=== PATIENT | female | born 1980 | race Hispanic/Latino ===

== ENCOUNTER 2017-07-18 12:05 | Emergency (ER) | payer OTHER ==
[2017-07-18 12:25] VITALS: BP 122/83; PULSE 98; RESP 20; TEMP 98.5; O2SAT 98
--- NOTE | 2017-07-18 12:38 | C.PDOC ---
History Of Present Illness 36 y/o female presents to ED for evaluation of right ear ache, cough, and congestion for the last 4 days. Denies fever, chills, sore throat, shortness of breath, or any other associated symptoms at this time. (+) smoker Time Seen by Provider: 07/18/17 12:12 Chief Complaint (Nursing): ENT Problem History Per: Patient History/Exam Limitations: no limitations Onset/Duration Of Symptoms: Days (4) Current Symptoms Are (Timing): Still Present Location Of Pain: Ear(s) (right) Sick Contacts (Context): None Associated Symptoms: Cough, Nasal Congestion. denies: Fever, Chills, Sore Throat, Sputum, Neck Pain, Sinus Drainage, Myalgias Ear Symptoms: Right: Ear Pain Recent travel outside of the [place]: No Additional History Per: Patient Past Medical History Reviewed: Historical Data, Nursing Documentation, Vital Signs Vital Signs: Last Vital Signs Temp 98.5 F 07/18/17 12:22 Pulse 98 H 07/18/17 12:22 Resp 20 07/18/17 12:22 BP 122/83 07/18/17 12:22 Pulse Ox 98 07/18/17 14:32 - Medical History PMH: Asthma, Back Problems Family History: States: Unknown Family Hx - Social History Hx Tobacco Use: Yes Hx Alcohol Use: No Hx Substance Use: Yes (past use) - Immunization History Hx Tetanus Toxoid Vaccination: No Hx Influenza Vaccination: No Hx Pneumococcal Vaccination: No Review Of Systems Except As Marked, All Systems Reviewed And Found Negative. Constitutional: Negative for: Fever, Chills ENT: Positive for: Ear Pain (right), Nose Congestion. Negative for: Ear Discharge, Nose Discharge, Mouth Pain, Throat Pain, Throat Swelling Respiratory: Positive for: Cough. Negative for: Shortness of Breath Gastrointestinal: Negative for: Nausea, Vomiting, Diarrhea Skin: Negative for: Rash Physical Exam - Physical Exam Appears: Non-toxic, No Acute Distress Skin: Normal Color, Warm, Dry, No Rash Head: Atraumatic, Normacephalic Eye(s): bilateral: Normal Inspection, EOMI Ear(s): Bilateral: TM Erythema (bilateral ear erythema, R>L) Nose: Normal Oral Mucosa: Moist Throat: Normal, No Erythema, No Exudate, No Drooling Neck: Normal ROM, Supple Lymphatic: Normal Exam Chest: Symmetrical Cardiovascular: Rhythm Regular, No Murmur Respiratory: Normal Breath Sounds, No Accessory Muscle Use, No Rales, No Rhonchi , No Wheezing Extremity: Normal ROM Neurological/Psych: Oriented x3, Normal Speech ED Course And Treatment O2 Sat by Pulse Oximetry: 98 (on RA) Pulse Ox Interpretation: Normal Progress Note: Pt was given Motrin. On re-eval, pt reports improvement of pain. No acute distress. Patient is being discharged home, and is instructed to follow up with his primary medical doctor or clinic in 2-5 days for further evaluation. Disposition - Disposition Disposition: HOME/ ROUTINE Disposition Time: 12:36 Condition: STABLE Additional Instructions: Follow up with your primary medical doctor or clinic in 2-5 days for further evaluation. Take medications as prescribed. Return to the emergency department at any time if symptoms persist or worsen. 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 - Scribe Statement The provider has reviewed the documentation as recorded by the Scribe Caitlin Thompson All medical record entries made by the Nilay were at my direction and personally dictated by me. I have reviewed the chart and agree that the record accurately reflects my personal performance of the history, physical exam, medical decision making, and the department course for this patient. I have also personally directed, reviewed, and agree with the discharge instructions and disposition.
== END 2017-07-18 13:24 | disposition home or self-care (01) ==
LOC: C.ER 12:05
DX: H66.93 Otitis media, unspecified, bilateral (principal); F17.210 Nicotine dependence, cigarettes, uncomplicated

== ENCOUNTER 2017-08-20 14:41 | Emergency (ER) | payer MEDICAID, OTHER ==
[2017-08-20 14:46] VITALS: BP 103/69; PULSE 91; TEMP 97.4; O2SAT 97
[2017-08-20] MEDS ORDERED: Oxycodone/Acetaminophen 5/325 mg Tab PO STA (15:36)
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
[2017-08-20 16:35] VITALS: RESP 20
== END 2017-08-20 16:35 | disposition home or self-care (01) ==
LOC: C.ER 14:41
DX: Z48.02 Encounter for removal of sutures (principal)

== ENCOUNTER 2017-10-04 13:04 | Emergency (ER) | payer MEDICAID, OTHER ==
[2017-10-04 13:23] VITALS: BP 106/70; PULSE 73; RESP 18; TEMP 97.9; O2SAT 100
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
--- NOTE | 2017-10-04 14:54 | CT ---
CT maxillofacial bones without IV contrast Indication: Trauma to nose Comparison: None available Technique: Axial computed tomography images were obtained of the maxillofacial bones without the use of intravenous contrast. Coronal and sagittal reformatted images were generated and reviewed. This CT exam was performed using 1 or more of the falling dose reduction techniques: Automated exposure control, adjustment of the MAA and/or kV according to patient size, and/or use of iterative reconstruction technique. Radiation dose: Total exam DLP = 735.66 mGy-cm. Findings: Streak artifact from dental hardware. Comminuted displaced right nasal bone fractures. Nondisplaced left nasal bone fractures. Associated soft tissue swelling. The remainder the visualized osseous structures appear intact. The orbits appear unremarkable. The temporomandibular joints are located. The mastoid air cells appear clear. Extensive opacification of the left sphenoid sinus. Marked mucosal thickening of the right greater than left maxillary sinuses including mucosal polyp/ retention cysts. Visualized portions of the brain appear grossly unremarkable. Impression: Comminuted displaced right nasal bone fractures. Nondisplaced left nasal bone fractures. Associated soft tissue swelling. Extensive opacification of the left sphenoid sinus. Marked mucosal thickening of the right greater than left maxillary sinuses including mucosal polyp/ retention cysts.
== END 2017-10-04 14:54 | disposition home or self-care (01) ==
LOC: C.ER 13:04
DX: S02.2XXA Fracture of nasal bones, initial encounter for closed fracture (principal); Y04.0XXA Assault by unarmed brawl or fight, initial encounter; Y92.039 Unspecified place in apartment as the place of occurrence of the external cause

== ENCOUNTER 2018-02-01 17:31 | Inpatient (IN) | payer OTHER ==
[2018-02-01 17:38] VITALS: BMI 20.2
--- NOTE | 2018-02-01 18:23 | C.PDOC ---
History Of Present Illness <Nicole Gil - Last Filed: 02/01/18 18:45> <Luke Molina - Last Filed: 02/01/18 20:28> 37-YEAR-OLD FEMALE, PRESENTS TO THE EMERGENCY DEPARTMENT WITH COMPLAINTS OF FEVER, RASH ONGOING 2-3 DAYS, RASH INITIAL ONSET ON CHEST, LEFT UPPER ARM, AND SPREAD "EVERYWHERE" GENERALIZED BODY OVER 2 DAYS. NEW ONSET FEVER THIS AM. +GEN ITCH. PS HAD CHILDHOOD CHICKEN POX AND IMMUNIZATIONS. NO RECENT TRAVEL, NO KNOWN SICK CONTACT EXPOSURE, NO HEADACHE. DENIES HX OF IVDA, NO PRIOR TESTING FOR HIV. SHE IS ALSO COMPLAINING OF LESION IN MOUTH ONGONG X1 WEEK/. STATES BITES HER CHEEK WHEN SHE IS ASLEEP. EXAM NON TOXIC. NAD HEENT NO PHOTOPHOBIA, EYES CLR. NO DC NO RUNNY NOSE ORAL: CHRONIC EXCORIATION ON BUCKLE SURFACE RIGHT MOUTH. POOR DENTITION, NO VISUALIZED KOPLIK'S SPOTS NECK IS SUPPLE NO MENINGISMUS NODE: B/L CERVICAL, R SUBMANDIBULAR NONTEN SKIN: DIFFUSE, GENERALIZED MORBILLIFORM, NONCONFLUENT, BLANCHING, NO VESICLES, OCC EXCORIATIONS FROM PT SCRATCHING, SPARING PALMS AND SOLES. NEURO INTACT NO FOCAL DEF. NO XIE. (Nicole Gil) History Per: Patient History/Exam Limitations: no limitations Onset/Duration Of Symptoms: Days <Nicole Gil - Last Filed: 02/01/18 18:45> <Luke Molina - Last Filed: 02/01/18 20:28> Time Seen by Provider: 02/01/18 18:19 Chief Complaint (Nursing): ENT Problem Past Medical History Reviewed: Historical Data, Nursing Documentation, Vital Signs - Medical History PMH: Anemia, Anxiety, Asthma, Back Problems, Depression Family History: States: No Known Family Hx - Social History Hx Tobacco Use: Yes Hx Alcohol Use: No Hx Substance Use: Yes (past use) - Immunization History Hx Tetanus Toxoid Vaccination: Yes Hx Influenza Vaccination: No Hx Pneumococcal Vaccination: No <Nicole Gil - Last Filed: 02/01/18 18:45> Vital Signs: Last Vital Signs Temp 97.9 F 02/01/18 19:47 Pulse 108 H 02/01/18 20:24 Resp 16 02/01/18 20:24 BP 112/74 02/01/18 20:24 Pulse Ox 100 02/01/18 20:24 Review Of Systems Constitutional: Positive for: Fever. Negative for: Weakness Cardiovascular: Negative for: Chest Pain, Palpitations Respiratory: Negative for: Cough, Shortness of Breath Gastrointestinal: Negative for: Nausea, Vomiting Skin: Positive for: Rash Neurological: Negative for: Headache, Dizziness <Nicole Gil - Last Filed: 02/01/18 18:45> Physical Exam - Physical Exam Appears: Non-toxic, No Acute Distress Skin: Warm, Dry, Rash (DIFFUSE, GENERALIZED MORBILLIFORM, NONCONFLUENT, BLANCHING, NO VESICLES, OCC EXCORIATIONS FROM PT SCRATCHING, SPARING PALMS AND SOLES. ) Head: Atraumatic, Normacephalic Eye(s): bilateral: Normal Inspection (NO PHOTOPHOBIA), PERRL, EOMI Oral Mucosa: Other Teeth: No Normal Dentition (poor) Throat: Other (CHRONIC EXCORIATION ON BUCKLE SURFACE RIGHT MOUTH. POOR DENTITION , NO VISUALIZED KOPLIK'S SPOTS) Neck: Normal ROM, Supple, Other (NO MENINGISMUS. B/L CERVICAL, R SUBMANDIBULAR LYMPHADENOPATHY. NONTEN) Neurological/Psych: Oriented x3, Normal Speech, Other ( NO FOCAL DEF) <Nicole Gil - Last Filed: 02/01/18 18:45> ED Course And Treatment O2 Sat by Pulse Oximetry: 99 (RA) Pulse Ox Interpretation: Normal <Nicole Gil - Last Filed: 02/01/18 18:45> - Laboratory Results Result Diagrams: 02/01/18 19:02 02/01/18 19:02 <Luke Molina - Last Filed: 02/01/18 20:28> Progress - Data Reviewed Data Reviewed: Lab, Old records <Nicole Gil - Last Filed: 02/01/18 18:45> <Luke Molina - Last Filed: 02/01/18 20:28> - Re-Evaluation Re-evaluation Note: 02/01/18 18:20 D/W DR Veronika HENAO AWARE OF ER FINDINGS. PT DOES NOT REQUIRE ADMISSION. LABS, POSSIBLE QUARANTINE AT HOME. (Nicole Gil) 02/01/18 20:27 pt endorsed to [facility] labs, reassesemnet and final dispo. pt reevaluated. urine ? positive, noted leukocytoisis. concern for underlying sepsis. tamiflu dosed. case dicussed with dr mccoy. requests dr womack to be consulted. case discussed additional titers added. (Luke Molina) Disposition - Disposition Disposition Time: 19:00 <Nicole Gil - Last Filed: 02/01/18 18:45> <Luke Molina - Last Filed: 02/01/18 20:28> - Disposition Condition: STABLE Forms: [employer] ([place] Islander) - Clinical Impression Clinical Impression: Fever, Rash, Mouth ulceration, Lymphadenopathy Physician Patient Turnover Patient Signed Over To: Luke Molina Handoff Comments: FU LABS, DISPO <Nicole Gil - Last Filed: 02/01/18 18:45>
[2018-02-01 19:07] LABS: BASO # 0.1 K/uL (0.0-0.2); BASO % 0.5 % (0.0-2.0); EOS # 0.1 K/uL (0.0-0.7); EOS % 0.5 % (0.0-4.0); HEMOGLOBIN 14.2 g/dL (11.0-16.0); LYMPH # 0.6 K/uL (1.0-4.3); LYMPH % 4.1 % (20.0-40.0); MEAN CELL VOLUME 92.1 fL (81.0-99.0); MEAN CORPUSCULAR HEMOGLOBIN 31.5 pg (27.0-31.0); MEAN CORPUSCULAR HGB CONC 34.2 g/dL (33.0-37.0); MEAN PLATELET VOLUME 8.7 fL (7.2-11.7); NEUT # 13.1 K/uL (1.8-7.0); NEUT % 87.9 % (50.0-75.0); PLATELET COUNT 387 K/uL (130-400); RBC 4.51 Mil/uL (3.80-5.20); RED CELL DISTRIBUTION WIDTH 13.7 % (11.5-14.5); WHITE BLOOD COUNT 14.9 K/uL (4.8-10.8)
[2018-02-01 19:15] LABS: HCG,QUALITATIVE URINE NEGATIVE (NEGATIVE)
[2018-02-01 19:17] LABS: SQUAMOUS EPITHIAL 17 /hpf (0-5); URINE BACTERIA RARE (<OCC); URINE BILIRUBIN NEGATIVE (NEGATIVE); URINE BLOOD 1+ (NEGATIVE); URINE CLARITY Hazy (Clear); URINE COLOR Yellow (YELLOW); URINE GLUCOSE (UA) NORMAL (Normal); URINE LEUKOCYTE ESTERASE 1+ Leu/uL (Negative); URINE PROTEIN 2+ mg/dL (NEGATIVE); URINE UROBILINOGEN NORMAL mg/dL (0.2-1.0)
[2018-02-01 19:25] LABS: ALB/GLOB RATIO 0.8 (1.0-2.1); ALT/SGPT 28 U/L (9-52); AST/SGOT 22 U/L (14-36); BLOOD UREA NITROGEN 18 mg/dL (7-17); CALCIUM 9.5 mg/dl (8.6-10.4); GFR AFRICAN-AMERICAN > 60; GFR NON-AFRICAN AMERICAN > 60
[2018-02-01] MEDS ORDERED: Ciprofloxacin 400mg/200ml D5W 400 MG/200 ML BAG IVPB STA (19:34)
[2018-02-01 19:42] LABS: BANDS 4 % (0-2); EOSINOPHIL 1 % (0-4); LYMPHOCYTE 5 % (20-40); MONOCYTE 6 % (0-10); NEUTROPHIL 84 % (50-75); PLATELET ESTIMATE NORMAL (NORMAL); TOTAL CELLS COUNTED 100
[2018-02-01] MEDS ORDERED: Ciprofloxacin 400mg/200ml D5W 400 MG/200 ML BAG IVPB ONE (19:42)
[2018-02-01] MEDS ORDERED: Sodium Chloride 0.9% 1,000 ML IV ONE (20:19)
--- NOTE | 2018-02-01 20:50 | CP.PCM.HP ---
Past Patient History - Past Social History Smoking Status: Heavy Smoker > 10 Cigarettes Daily - PULMONARY Hx Asthma: Yes - HEMATOLOGICAL/ONCOLOGICAL Hx Anemia: Yes - MUSCULOSKELETAL/RHEUMATOLOGICAL Hx Musculoskeletal Disorders: Yes - PSYCHIATRIC Hx Anxiety: Yes Hx Depression: Yes Hx Substance Use: Yes (past use) - SURGICAL HISTORY Hx Surgeries: Yes Hx Section: Yes Hx Orthopedic Surgery: Yes Other/Comment: Ectopic, neck and back surgery - ANESTHESIA Hx Anesthesia: Yes Hx Anesthesia Reactions: No Meds Allergies/Adverse Reactions: Allergies Allergy/AdvReac Type Severity Reaction Status Date / Time diphenhydramine HCl Allergy Severe ANAPHYLAXIS Verified 02/01/18 17:37 [From Benadryl] Penicillins Allergy Severe ANAPHYLAXIS Verified 02/01/18 17:37 Results - Vital Signs Recent Vital Signs: Last Vital Signs Temp 97.9 F 02/01/18 19:47 Pulse 108 H 02/01/18 20:24 Resp 16 02/01/18 20:24 BP 112/74 02/01/18 20:24 Pulse Ox 100 02/01/18 20:24 - Labs Result Diagrams: 02/01/18 19:02 02/01/18 19:02 Labs: Laboratory Results - last 24 hr 02/01/18 02/01/18 02/01/18 19:02 19:02 19:02 WBC 14.9 H RBC 4.51 Hgb 14.2 Hct 41.5 MCV 92.1 MCH 31.5 H MCHC 34.2 RDW 13.7 Plt Count 387 MPV 8.7 Neut % (Auto) 87.9 H Lymph % (Auto) 4.1 L [place] % (Auto) 7.0 Eos % (Auto) 0.5 Baso % (Auto) 0.5 Neut # (Auto) 13.1 H Lymph # (Auto) 0.6 L [place] # (Auto) 1.0 H Eos # (Auto) 0.1 Baso # (Auto) 0.1 Neutrophils % (Manual) 84 H Band Neutrophils % 4 H Lymphocytes % (Manual) 5 L Monocytes % (Manual) 6 Eosinophils % (Manual) 1 Platelet Estimate Normal Sodium 138 Potassium 3.8 Chloride 101 Carbon Dioxide 25 Anion Gap 16 BUN 18 H Creatinine 0.8 Est GFR ( Amer) > 60 Est GFR (Non-Af Amer) > 60 Random Glucose 108 H Calcium 9.5 Total Bilirubin 0.4 AST 22 ALT 28 Alkaline Phosphatase 114 Total Protein 9.0 H Albumin 4.0 Globulin 5.0 H Albumin/Globulin Ratio 0.8 L Urine Color Yellow Urine Clarity Hazy Urine pH 5.0 Ur Specific [place] 1.029 Urine Protein 2+ H Urine Glucose (UA) Normal Urine Ketones Negative Urine Blood 1+ H Urine Nitrate Negative Urine Bilirubin Negative Urine Urobilinogen Normal Ur Leukocyte Esterase 1+ H Urine WBC (Auto) 16 H Urine RBC (Auto) 12 H Ur Squamous Epith Cells 17 H Urine Bacteria Rare Urine HCG, Qual Negative HIV 1&2 Antibody Screen Influenza Typ A,B (EIA) 02/01/18 02/01/18 19:02 19:09 WBC RBC Hgb Hct MCV MCH MCHC RDW Plt Count MPV Neut % (Auto) Lymph % (Auto) [place] % (Auto) Eos % (Auto) Baso % (Auto) Neut # (Auto) Lymph # (Auto) [place] # (Auto) Eos # (Auto) Baso # (Auto) Neutrophils % (Manual) Band Neutrophils % Lymphocytes % (Manual) Monocytes % (Manual) Eosinophils % (Manual) Platelet Estimate Sodium Potassium Chloride Carbon Dioxide Anion Gap BUN Creatinine Est GFR ( Amer) Est GFR (Non-Af Amer) Random Glucose Calcium Total Bilirubin AST ALT Alkaline Phosphatase Total Protein Albumin Globulin Albumin/Globulin Ratio Urine Color Urine Clarity Urine pH Ur Specific [place] Urine Protein Urine Glucose (UA) Urine Ketones Urine Blood Urine Nitrate Urine Bilirubin Urine Urobilinogen Ur Leukocyte Esterase Urine WBC (Auto) Urine RBC (Auto) Ur Squamous Epith Cells Urine Bacteria Urine HCG, Qual HIV 1&2 Antibody Screen Negative Influenza Typ A,B (EIA) Negative for flu a/b
[2018-02-01 21:37] LABS: RAPID PLASMA REAGIN REACTIVE (NONREACTIVE)
[2018-02-01 21:41] LABS: RPR TITER 1:32 (NONREACTIVE)
[2018-02-01 22:01] VITALS: RESP 20
[2018-02-02] MEDS: Ciprofloxacin 400mg/200ml D5W 400 MG/200 ML BAG IVPB SCH ×2 (08:00→20:00)
--- NOTE | 2018-02-02 09:04 | RAD ---
HISTORY: cough COMPARISON: No prior. FINDINGS: LUNGS: No infiltrate. Symmetric nodular opacity at the lung bases likely nipple shadows. PLEURA: No significant pleural effusion identified, no pneumothorax apparent. CARDIOVASCULAR: Normal. OSSEOUS STRUCTURES: No significant abnormalities. VISUALIZED UPPER ABDOMEN: Normal. OTHER FINDINGS: None. IMPRESSION: No active disease.
[2018-02-02] MEDS: Enoxaparin 40 mg Syringe SC SCH (09:24)
--- NOTE | 2018-02-02 14:30 | CP.PCM.PN ---
Subjective - Date & Time of Evaluation Date of Evaluation: 02/02/18 Time of Evaluation: 08:00 - Subjective Subjective: clinically same Objective - Vital Signs/Intake and Output Vital Signs (last 24 hours): Temp Pulse Resp BP Pulse Ox 98.7 F 113 H 20 115/71 96 02/02/18 11:47 02/02/18 08:21 02/02/18 08:21 02/02/18 08:21 02/02/18 08:21 Intake and Output: 02/02/18 02/02/18 06:59 18:59 Intake Total 300 670 Balance 300 670 - Medications Medications: Current Medications Acetaminophen (Tylenol 325mg Tab) 650 mg PO Q6 PRN PRN Reason: Fever >100.4 F Last Admin: 02/02/18 10:47 Dose: 650 mg Enoxaparin Sodium (Lovenox) 40 mg SC DAILY [facility] Last Admin: 02/02/18 09:24 Dose: 40 mg Dextrose (Dextrose 5% In Water 1000 Ml) 1,000 mls @ 60 mls/hr IV .[id number] [facility] Last Admin: 02/02/18 14:03 Dose: Not Given Ciprofloxacin (Cipro 400mg/200ml Dsw) 400 mg in 200 mls @ 133 mls/hr IVPB Q12H STEPHANIE PRN Reason: Protocol Last Admin: 02/02/18 08:00 Dose: 133 mls/hr Oseltamivir Phosphate (Tamiflu Cap) 75 mg PO BID [facility] PRN Reason: Protocol Stop: 02/06/18 22:36 Last Admin: 02/02/18 09:24 Dose: 75 mg Pantoprazole Sodium (Protonix Inj) 40 mg IVP DAILY [facility] Last Admin: 02/02/18 09:24 Dose: 40 mg Pneumococcal Polyvalent Vaccine (Pneumovax 23 Vaccine) 0.5 ml SC .ONCE ONE Stop: 02/04/18 10:01 - Labs Labs: 02/01/18 19:02 02/01/18 19:02 - Constitutional Appears: Well - Head Exam Head Exam: ATRAUMATIC, NORMAL INSPECTION, NORMOCEPHALIC - Eye Exam Eye Exam: EOMI, Normal appearance, PERRL Pupil Exam: NORMAL ACCOMODATION, PERRL - ENT Exam ENT Exam: Mucous Membranes Moist, Normal Exam - Neck Exam Neck Exam: Full ROM, Normal Inspection. absent: Lymphadenopathy - Respiratory Exam Respiratory Exam: Decreased Breath Sounds - Cardiovascular Exam Cardiovascular Exam: REGULAR RHYTHM, +S1, +S2 - GI/Abdominal Exam GI & Abdominal Exam: Soft, Diminished Bowel Sounds - Rectal Exam Rectal Exam: Deferred Assessment and Plan - Assessment and Plan (Free Text) Plan: Cipro isolation continue Lovenox Continue Protonix ID consult Follow-up with all the serologies
[2018-02-02] MEDS ORDERED: guaiFENesin 100 mg/5 ml Syrup UD PO PRN (14:57)
--- NOTE | 2018-02-02 15:02 | CP.PCM.CON ---
History of Present Illness - History of Present Illness History of Present Illness: dictated Past Patient History - Past Medical History & Family History Past Medical History?: Yes - Past Social History Smoking Status: Heavy Smoker > 10 Cigarettes Daily - PULMONARY Hx Asthma: Yes - HEMATOLOGICAL/ONCOLOGICAL Hx Anemia: Yes - MUSCULOSKELETAL/RHEUMATOLOGICAL Hx Falls: No - PSYCHIATRIC Hx Substance Use: Yes - SURGICAL HISTORY Hx Surgeries: Yes Hx Section: Yes Hx Orthopedic Surgery: Yes Other/Comment: Ectopic, neck and back surgery - ANESTHESIA Hx Anesthesia: Yes Hx Anesthesia Reactions: No Meds Allergies/Adverse Reactions: Allergies Allergy/AdvReac Type Severity Reaction Status Date / Time diphenhydramine HCl Allergy Severe ANAPHYLAXIS Verified 02/01/18 17:37 [From Benadryl] Penicillins Allergy Severe ANAPHYLAXIS Verified 02/01/18 17:37 - Medications Medications: Current Medications Acetaminophen (Tylenol 325mg Tab) 650 mg PO Q6 PRN PRN Reason: Fever >100.4 F Last Admin: 02/02/18 10:47 Dose: 650 mg Doxycycline Hyclate (Doryx) 100 mg PO Q12H [facility] PRN Reason: Protocol Enoxaparin Sodium (Lovenox) 40 mg SC DAILY [facility] Last Admin: 02/02/18 09:24 Dose: 40 mg Guaifenesin (Robitussin) 100 mg PO Q6H PRN PRN Reason: Cough Dextrose (Dextrose 5% In Water 1000 Ml) 1,000 mls @ 60 mls/hr IV .[id number] [facility] Last Admin: 02/02/18 14:03 Dose: Not Given Ciprofloxacin (Cipro 400mg/200ml Dsw) 400 mg in 200 mls @ 133 mls/hr IVPB Q12H [facility] PRN Reason: Protocol Last Admin: 02/02/18 08:00 Dose: 133 mls/hr Neomycin/Polymyxin/Hydrocortisone (Cortisporin Otic Soln) 4 drop AU QID [facility] Oseltamivir Phosphate (Tamiflu Cap) 75 mg PO BID [facility] PRN Reason: Protocol Stop: 02/06/18 22:36 Last Admin: 02/02/18 09:24 Dose: 75 mg Pantoprazole Sodium (Protonix Inj) 40 mg IVP DAILY [facility] Last Admin: 02/02/18 09:24 Dose: 40 mg Pneumococcal Polyvalent Vaccine (Pneumovax 23 Vaccine) 0.5 ml SC .ONCE ONE Stop: 02/04/18 10:01 Results - Vital Signs Recent Vital Signs: Last Vital Signs Temp 98.7 F 02/02/18 11:47 Pulse 113 H 02/02/18 08:21 Resp 20 02/02/18 08:21 BP 115/71 02/02/18 08:21 Pulse Ox 96 02/02/18 08:21 - Labs Result Diagrams: 02/01/18 19:02 02/01/18 19:02 Labs: Laboratory Results - last 24 hr 02/01/18 02/01/18 02/01/18 19:02 19:02 19:02 WBC 14.9 H RBC 4.51 Hgb 14.2 Hct 41.5 MCV 92.1 MCH 31.5 H MCHC 34.2 RDW 13.7 Plt Count 387 MPV 8.7 Neut % (Auto) 87.9 H Lymph % (Auto) 4.1 L [place] % (Auto) 7.0 Eos % (Auto) 0.5 Baso % (Auto) 0.5 Neut # (Auto) 13.1 H Lymph # (Auto) 0.6 L [place] # (Auto) 1.0 H Eos # (Auto) 0.1 Baso # (Auto) 0.1 Neutrophils % (Manual) 84 H Band Neutrophils % 4 H Lymphocytes % (Manual) 5 L Monocytes % (Manual) 6 Eosinophils % (Manual) 1 Platelet Estimate Normal Sodium 138 Potassium 3.8 Chloride 101 Carbon Dioxide 25 Anion Gap 16 BUN 18 H Creatinine 0.8 Est GFR ( Amer) > 60 Est GFR (Non-Af Amer) > 60 Random Glucose 108 H Calcium 9.5 Total Bilirubin 0.4 AST 22 ALT 28 Alkaline Phosphatase 114 Total Protein 9.0 H Albumin 4.0 Globulin 5.0 H Albumin/Globulin Ratio 0.8 L Urine Color Yellow Urine Clarity Hazy Urine pH 5.0 Ur Specific [place] 1.029 Urine Protein 2+ H Urine Glucose (UA) Normal Urine Ketones Negative Urine Blood 1+ H Urine Nitrate Negative Urine Bilirubin Negative Urine Urobilinogen Normal Ur Leukocyte Esterase 1+ H Urine WBC (Auto) 16 H Urine RBC (Auto) 12 H Ur Squamous Epith Cells 17 H Urine Bacteria Rare Urine HCG, Qual Negative RPR Titer RPR HIV 1&2 Antibody Screen Influenza Typ A,B (EIA) 02/01/18 02/01/18 02/01/18 19:02 19:09 20:46 WBC RBC Hgb Hct MCV MCH MCHC RDW Plt Count MPV Neut % (Auto) Lymph % (Auto) [place] % (Auto) Eos % (Auto) Baso % (Auto) Neut # (Auto) Lymph # (Auto) [place] # (Auto) Eos # (Auto) Baso # (Auto) Neutrophils % (Manual) Band Neutrophils % Lymphocytes % (Manual) Monocytes % (Manual) Eosinophils % (Manual) Platelet Estimate Sodium Potassium Chloride Carbon Dioxide Anion Gap BUN Creatinine Est GFR ( Amer) Est GFR (Non-Af Amer) Random Glucose Calcium Total Bilirubin AST ALT Alkaline Phosphatase Total Protein Albumin Globulin Albumin/Globulin Ratio Urine Color Urine Clarity Urine pH Ur Specific [place] Urine Protein Urine Glucose (UA) Urine Ketones Urine Blood Urine Nitrate Urine Bilirubin Urine Urobilinogen Ur Leukocyte Esterase Urine WBC (Auto) Urine RBC (Auto) Ur Squamous Epith Cells Urine Bacteria Urine HCG, Qual RPR Titer 1:32 H RPR Reactive H HIV 1&2 Antibody Screen Negative Influenza Typ A,B (EIA) Negative for flu a/b
[2018-02-02] MEDS: Neomycin/Polymyxin/Hydrocort Otic Soln BOTTLE AU SCH ×2 (17:26→21:31)
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
[2018-02-03] MEDS: Ciprofloxacin 400mg/200ml D5W 400 MG/200 ML BAG IVPB SCH ×2 (09:00→20:50)
[2018-02-03] MEDS: Neomycin/Polymyxin/Hydrocort Otic Soln BOTTLE AU SCH ×4 (10:51→21:43)
[2018-02-03] MEDS: Enoxaparin 40 mg Syringe SC SCH (10:53)
--- NOTE | 2018-02-03 17:31 | CP.PCM.PN ---
Subjective - Date & Time of Evaluation Date of Evaluation: 02/03/18 Time of Evaluation: 08:00 - Subjective Subjective: clinically same Objective - Vital Signs/Intake and Output Vital Signs (last 24 hours): Temp Pulse Resp BP Pulse Ox 97.8 F 78 20 125/74 97 02/03/18 15:26 02/03/18 15:00 02/03/18 15:00 02/03/18 15:00 02/03/18 15:00 Intake and Output: 02/03/18 02/03/18 06:59 18:59 Intake Total 1180 1070 Balance 1180 1070 - Medications Medications: Current Medications Acetaminophen (Tylenol 325mg Tab) 650 mg PO Q6 PRN PRN Reason: Fever >100.4 F Last Admin: 02/03/18 14:26 Dose: 650 mg Doxycycline Hyclate (Doryx) 100 mg PO Q12H [facility] PRN Reason: Protocol Last Admin: 02/03/18 14:26 Dose: 100 mg Enoxaparin Sodium (Lovenox) 40 mg SC DAILY [facility] Last Admin: 02/03/18 10:53 Dose: 40 mg Guaifenesin (Robitussin) 100 mg PO Q6H PRN PRN Reason: Cough Dextrose (Dextrose 5% In Water 1000 Ml) 1,000 mls @ 60 mls/hr IV .[id number] [facility] Last Admin: 02/03/18 16:02 Dose: 60 mls/hr Ciprofloxacin (Cipro 400mg/200ml Dsw) 400 mg in 200 mls @ 133 mls/hr IVPB Q12H [facility] PRN Reason: Protocol Last Admin: 02/03/18 09:00 Dose: 133 mls/hr Neomycin/Polymyxin/Hydrocortisone (Cortisporin Otic Soln) 4 drop AU QID [facility] Last Admin: 02/03/18 14:27 Dose: 4 drop Oseltamivir Phosphate (Tamiflu Cap) 75 mg PO BID [facility] PRN Reason: Protocol Stop: 02/06/18 22:36 Last Admin: 02/03/18 10:53 Dose: 75 mg Pantoprazole Sodium (Protonix Inj) 40 mg IVP DAILY [facility] Last Admin: 02/03/18 10:53 Dose: 40 mg Pneumococcal Polyvalent Vaccine (Pneumovax 23 Vaccine) 0.5 ml SC .ONCE ONE Stop: 02/04/18 10:01 Tramadol HCl (Ultram) 50 mg PO Q6 PRN PRN Reason: Pain, moderate (4-7) Last Admin: 02/03/18 16:00 Dose: 50 mg - Labs Labs: 02/01/18 19:02 02/01/18 19:02 - Constitutional Appears: Well - Head Exam Head Exam: ATRAUMATIC, NORMAL INSPECTION, NORMOCEPHALIC - Eye Exam Eye Exam: EOMI, Normal appearance, PERRL Pupil Exam: NORMAL ACCOMODATION, PERRL - ENT Exam ENT Exam: Mucous Membranes Moist, Normal Exam - Neck Exam Neck Exam: Full ROM, Normal Inspection. absent: Lymphadenopathy - Respiratory Exam Respiratory Exam: Decreased Breath Sounds - Cardiovascular Exam Cardiovascular Exam: REGULAR RHYTHM, +S1, +S2 - GI/Abdominal Exam GI & Abdominal Exam: Soft, Diminished Bowel Sounds - Rectal Exam Rectal Exam: Deferred Assessment and Plan - Assessment and Plan (Free Text) Plan: Doxycycline because of the patient is allergic to penicillin secondary to syphilis following follow-up with MMR and also continue with the Cipro Continue with the GI and DVT prophylaxis As ordered
[2018-02-04] MEDS: Ciprofloxacin 400mg/200ml D5W 400 MG/200 ML BAG IVPB SCH ×2 (09:00→20:02)
[2018-02-04] MEDS ORDERED: Pneumococcal 23-Valent Vaccine SC ONE (10:00)
[2018-02-04] MEDS: Neomycin/Polymyxin/Hydrocort Otic Soln BOTTLE AU SCH ×2 (11:00→14:48)
[2018-02-04] MEDS: Enoxaparin 40 mg Syringe SC SCH (11:01)
--- NOTE | 2018-02-04 15:13 | CP.PCM.PN ---
Subjective - Date & Time of Evaluation Date of Evaluation: 02/04/18 Time of Evaluation: 07:40 - Subjective Subjective: clinically same Objective - Vital Signs/Intake and Output Vital Signs (last 24 hours): Temp Pulse Resp BP Pulse Ox 99.6 F 94 H 20 107/71 98 02/04/18 08:32 02/04/18 08:32 02/04/18 08:32 02/04/18 08:32 02/04/18 08:32 Intake and Output: 02/04/18 02/04/18 06:59 18:59 Intake Total 1570 Balance 1570 - Medications Medications: Current Medications Acetaminophen (Tylenol 325mg Tab) 650 mg PO Q6 PRN PRN Reason: Fever >100.4 F Last Admin: 02/03/18 14:26 Dose: 650 mg Doxycycline Hyclate (Doryx) 100 mg PO Q12H [facility] PRN Reason: Protocol Last Admin: 02/04/18 14:38 Dose: 100 mg Enoxaparin Sodium (Lovenox) 40 mg SC DAILY [facility] Last Admin: 02/04/18 11:01 Dose: 40 mg Guaifenesin (Robitussin) 100 mg PO Q6H PRN PRN Reason: Cough Dextrose (Dextrose 5% In Water 1000 Ml) 1,000 mls @ 60 mls/hr IV .[id number] [facility] Last Admin: 02/04/18 00:04 Dose: Not Given Ciprofloxacin (Cipro 400mg/200ml Dsw) 400 mg in 200 mls @ 133 mls/hr IVPB Q12H [facility] PRN Reason: Protocol Last Admin: 02/04/18 09:00 Dose: 133 mls/hr Neomycin/Polymyxin/Hydrocortisone (Cortisporin Otic Soln) 4 drop AU QID [facility] Last Admin: 02/04/18 14:48 Dose: Not Given Pantoprazole Sodium (Protonix Inj) 40 mg IVP DAILY [facility] Last Admin: 02/04/18 11:00 Dose: 40 mg Tramadol HCl (Ultram) 50 mg PO Q6 PRN PRN Reason: Pain, moderate (4-7) Last Admin: 02/04/18 14:37 Dose: 50 mg - Labs Labs: 02/01/18 19:02 02/01/18 19:02 - Constitutional Appears: Well - Head Exam Head Exam: ATRAUMATIC, NORMAL INSPECTION, NORMOCEPHALIC - Eye Exam Eye Exam: EOMI, Normal appearance, PERRL Pupil Exam: NORMAL ACCOMODATION, PERRL - ENT Exam ENT Exam: Mucous Membranes Moist, Normal Exam - Neck Exam Neck Exam: Full ROM, Normal Inspection. absent: Lymphadenopathy - Respiratory Exam Respiratory Exam: Decreased Breath Sounds - Cardiovascular Exam Cardiovascular Exam: REGULAR RHYTHM, +S1, +S2 - GI/Abdominal Exam GI & Abdominal Exam: Soft, Diminished Bowel Sounds - Rectal Exam Rectal Exam: Deferred Assessment and Plan - Assessment and Plan (Free Text) Plan: Continue Cipro Continue doxycycline WBC is 14.9 Follow-up with the Dr. Feliciano Gilbert LFTs okay GIANNA is negative RPR is positive on is 232 RPR is reactive Rubeola is low IgG titer Will get IgM is pending
--- NOTE | 2018-02-04 16:04 | CP.PCM.PN ---
Subjective - Date & Time of Evaluation Date of Evaluation: 02/04/18 Time of Evaluation: 03:15 - Subjective Subjective: dictated Objective - Vital Signs/Intake and Output Vital Signs (last 24 hours): Temp Pulse Resp BP Pulse Ox 99.6 F 94 H 20 107/71 98 02/04/18 08:32 02/04/18 08:32 02/04/18 08:32 02/04/18 08:32 02/04/18 08:32 Intake and Output: 02/04/18 02/04/18 06:59 18:59 Intake Total 1570 880 Balance 1570 880 - Medications Medications: Current Medications Acetaminophen (Tylenol 325mg Tab) 650 mg PO Q6 PRN PRN Reason: Fever >100.4 F Last Admin: 02/03/18 14:26 Dose: 650 mg Doxycycline Hyclate (Doryx) 100 mg PO Q12H [facility] PRN Reason: Protocol Last Admin: 02/04/18 14:38 Dose: 100 mg Enoxaparin Sodium (Lovenox) 40 mg SC DAILY [facility] Last Admin: 02/04/18 11:01 Dose: 40 mg Guaifenesin (Robitussin) 100 mg PO Q6H PRN PRN Reason: Cough Dextrose (Dextrose 5% In Water 1000 Ml) 1,000 mls @ 60 mls/hr IV .[id number] [facility] Last Admin: 02/04/18 00:04 Dose: Not Given Ciprofloxacin (Cipro 400mg/200ml Dsw) 400 mg in 200 mls @ 133 mls/hr IVPB Q12H [facility] PRN Reason: Protocol Last Admin: 02/04/18 09:00 Dose: 133 mls/hr Neomycin/Polymyxin/Hydrocortisone (Cortisporin Otic Soln) 4 drop AU QID [facility] Last Admin: 02/04/18 14:48 Dose: Not Given Pantoprazole Sodium (Protonix Inj) 40 mg IVP DAILY [facility] Last Admin: 02/04/18 11:00 Dose: 40 mg Tramadol HCl (Ultram) 50 mg PO Q6 PRN PRN Reason: Pain, moderate (4-7) Last Admin: 02/04/18 14:37 Dose: 50 mg - Labs Labs: 02/01/18 19:02 02/01/18 19:02
[2018-02-04] MEDS ORDERED: Ofloxacin 0.3% Otic Soln AU SCH (18:00)
[2018-02-04] MEDS: Ofloxacin 0.3% Otic Soln AU SCH (20:01)
--- NOTE | 2018-02-05 01:43 | PN ---
DATE: SUBJECTIVE: The patient was complaining that her ears are still hurting, and she wanted different medicine than Cortisporin. I called the lab to find out ofloxacin. If her ears are hurting tomorrow, we need any antibiotics. She still has diffuse rash which is more on the upper extremities, chest wall, and back, and less on the lower extremities. She also added some drugs, so I am not sure if it is a reaction. She complains feeling mildly itchy, but she is allergic to diphenhydramine. It could be also viral and it could be syphilis rash as she had RPR positive, and she was started on doxycycline as she is allergic to penicillin. PHYSICAL EXAMINATION: VITAL SIGNS: T-max is 98.5. She denies any fevers, feels slightly cold. Pulse is 105, blood pressure 115/71, and respirations are 20. She remains on isolation. HEENT: Head is atraumatic. She is awake and alert. Tongue is moist. SKIN: There are no lesions on her mucous membranes, and hand palms, that is why I am thinking it is not probably syphilitic. NECK: Supple. LUNGS: Clear. HEART: S1 and S2 regular, tachycardiac. ABDOMEN: Soft, nontender. No guarding, no rigidity present. EXTREMITIES: Have no edema, clubbing, or cyanosis. She does have a rash. LABORATORY DATA: I will repeat the labs tomorrow, and we are checking the MMR, we will follow that, and the patient to remain in this, and we will repeat labs tomorrow, and blood cultures and urine cultures are negative, so it is probably not bacterial. ASSESSMENT AND PLAN: The patient has diffuse skin rash, came in with fever. Etiology could be syphilis or drug reaction to the heroin and marijuana that she took. Mario Montana MD
[2018-02-05 06:23] LABS: BASO # 0.1 K/uL (0.0-0.2); EOS # 0.2 K/uL (0.0-0.7); EOS % 2.6 % (0.0-4.0); HEMOGLOBIN 13.4 g/dL (11.0-16.0); LYMPH # 0.9 K/uL (1.0-4.3); LYMPH % 12.4 % (20.0-40.0); MEAN CELL VOLUME 91.5 fL (81.0-99.0); MEAN PLATELET VOLUME 8.6 fL (7.2-11.7); MONO # 1.1 K/uL (0.0-0.8); MONO % 15.2 % (0.0-10.0); NEUT # 5.1 K/uL (1.8-7.0); NEUT % 68.8 % (50.0-75.0); RBC 4.2 Mil/uL (3.80-5.20); RED CELL DISTRIBUTION WIDTH 13.7 % (11.5-14.5); WHITE BLOOD COUNT 7.4 K/uL (4.8-10.8)
[2018-02-05 06:56] LABS: ALB/GLOB RATIO 0.8 (1.0-2.1); ALBUMIN 3.4 g/dL (3.5-5.0); ALT/SGPT 30 U/L (9-52); AST/SGOT 17 U/L (14-36); BLOOD UREA NITROGEN 12 mg/dL (7-17); CALCIUM 8.7 mg/dl (8.6-10.4); GFR AFRICAN-AMERICAN > 60; GFR NON-AFRICAN AMERICAN > 60
[2018-02-05] MEDS: Ciprofloxacin 400mg/200ml D5W 400 MG/200 ML BAG IVPB SCH (08:08)
[2018-02-05] MEDS: Ofloxacin 0.3% Otic Soln AU SCH ×2 (09:16→18:00)
[2018-02-05] MEDS: Enoxaparin 40 mg Syringe SC SCH (09:17)
[2018-02-05 12:09] VITALS: O2SAT 99
--- NOTE | 2018-02-05 13:19 | CP.PCM.PN ---
Subjective - Date & Time of Evaluation Date of Evaluation: 02/05/18 Time of Evaluation: 08:00 - Subjective Subjective: clinically same Objective - Vital Signs/Intake and Output Vital Signs (last 24 hours): Temp Pulse Resp BP Pulse Ox 99.3 F 76 20 107/67 99 02/05/18 12:08 02/05/18 12:08 02/05/18 12:08 02/05/18 12:08 02/05/18 12:08 Intake and Output: 02/05/18 02/05/18 06:59 18:59 Intake Total 1610 Output Total 500 Balance 1110 - Medications Medications: Current Medications Acetaminophen (Tylenol 325mg Tab) 650 mg PO Q6 PRN PRN Reason: Fever >100.4 F Last Admin: 02/03/18 14:26 Dose: 650 mg Doxycycline Hyclate (Doryx) 100 mg PO Q12H [facility] PRN Reason: Protocol Last Admin: 02/05/18 02:59 Dose: 100 mg Enoxaparin Sodium (Lovenox) 40 mg SC DAILY [facility] Last Admin: 02/05/18 09:17 Dose: 40 mg Guaifenesin (Robitussin) 100 mg PO Q6H PRN PRN Reason: Cough Ciprofloxacin (Cipro 400mg/200ml Dsw) 400 mg in 200 mls @ 133 mls/hr IVPB Q12H [facility] PRN Reason: Protocol Last Admin: 02/05/18 08:08 Dose: 133 mls/hr Dextrose (Dextrose 5% In Water) 250 mls @ 60 mls/hr IV .Q4H10M [facility] Last Admin: 02/05/18 10:18 Dose: 60 mls/hr Ofloxacin (Floxin 0.3% Otic Soln) 0 ml AU BID [facility] Last Admin: 02/05/18 09:16 Dose: 10 drop Pantoprazole Sodium (Protonix Inj) 40 mg IVP DAILY [facility] Last Admin: 02/05/18 09:16 Dose: 40 mg Tramadol HCl (Ultram) 50 mg PO Q6 PRN PRN Reason: Pain, moderate (4-7) Last Admin: 02/05/18 12:22 Dose: 50 mg - Labs Labs: 02/05/18 06:16 02/05/18 06:16 - Constitutional Appears: Well - Head Exam Head Exam: ATRAUMATIC, NORMAL INSPECTION, NORMOCEPHALIC - Eye Exam Eye Exam: EOMI, Normal appearance, PERRL Pupil Exam: NORMAL ACCOMODATION, PERRL - ENT Exam ENT Exam: Mucous Membranes Moist, Normal Exam - Neck Exam Neck Exam: Full ROM, Normal Inspection. absent: Lymphadenopathy - Respiratory Exam Respiratory Exam: Decreased Breath Sounds - Cardiovascular Exam Cardiovascular Exam: REGULAR RHYTHM, +S1, +S2 - GI/Abdominal Exam GI & Abdominal Exam: Soft, Diminished Bowel Sounds - Rectal Exam Rectal Exam: Deferred
--- NOTE | 2018-02-05 17:20 | CP.PCM.PN ---
Subjective - Date & Time of Evaluation Date of Evaluation: 02/05/18 Time of Evaluation: 17:29 - Subjective Subjective: Awake, alert, no acute distress. Generalized skin rash is little better according to the patient. Objective - Vital Signs/Intake and Output Vital Signs (last 24 hours): Temp Pulse Resp BP Pulse Ox 99.3 F 76 20 107/67 99 02/05/18 12:08 02/05/18 12:08 02/05/18 12:08 02/05/18 12:08 02/05/18 12:08 Intake and Output: 02/05/18 02/05/18 06:59 18:59 Intake Total 1610 630 Output Total 500 Balance 1110 630 - Medications Medications: Current Medications Acetaminophen (Tylenol 325mg Tab) 650 mg PO Q6 PRN PRN Reason: Fever >100.4 F Last Admin: 02/03/18 14:26 Dose: 650 mg Doxycycline Hyclate (Doryx) 100 mg PO Q12H [facility] PRN Reason: Protocol Last Admin: 02/05/18 15:50 Dose: 100 mg Enoxaparin Sodium (Lovenox) 40 mg SC DAILY [facility] Last Admin: 02/05/18 09:17 Dose: 40 mg Guaifenesin (Robitussin) 100 mg PO Q6H PRN PRN Reason: Cough Ciprofloxacin (Cipro 400mg/200ml Dsw) 400 mg in 200 mls @ 133 mls/hr IVPB Q12H [facility] PRN Reason: Protocol Last Admin: 02/05/18 08:08 Dose: 133 mls/hr Dextrose (Dextrose 5% In Water) 250 mls @ 60 mls/hr IV .Q4H10M [facility] Last Admin: 02/05/18 13:00 Dose: Not Given Ofloxacin (Floxin 0.3% Otic Soln) 0 ml AU BID [facility] Last Admin: 02/05/18 09:16 Dose: 10 drop Pantoprazole Sodium (Protonix Ec Tab) 40 mg PO DAILY [facility] Tramadol HCl (Ultram) 50 mg PO Q6 PRN PRN Reason: Pain, moderate (4-7) Last Admin: 02/05/18 12:22 Dose: 50 mg - Labs Labs: 02/05/18 06:16 02/05/18 06:16 Assessment and Plan - Assessment and Plan (Free Text) Assessment: Patient is seen and examined. Alert and orientedx3, insisting to go home for the court day on Sunday. Skin with generalized rash and itching persists. Discussed with DR Montana, advised to continue on doxycycline 100mg po bid x25 days more with bacid. Discussed with DR Susan Thompson, agreed with the plan and discharged home with proscriptions. Advised to follow up in the medical clinic if no PMD.
[2018-02-05 17:29] LABS: LYME IGG NEGATIVE (NEGATIVE)
[2018-02-05 17:36] VITALS: BP 97/61; PULSE 94; TEMP 98.3
[2018-02-05 19:06] LABS: LYME IGM EQUIVOCAL (NEGATIVE)
--- NOTE | 2018-02-05 23:17 | CP.PCM.PN ---
Subjective - Date & Time of Evaluation Date of Evaluation: 02/05/18 Time of Evaluation: 03:00 - Subjective Subjective: dictated Objective - Vital Signs/Intake and Output Vital Signs (last 24 hours): Temp Pulse Resp BP Pulse Ox 98.3 F 94 H 20 97/61 L 99 02/05/18 16:00 02/05/18 16:00 02/05/18 16:00 02/05/18 16:00 02/05/18 16:00 Intake and Output: 02/05/18 02/06/18 18:59 06:59 Intake Total 1130 Balance 1130 - Labs Labs: 02/05/18 06:16 02/05/18 06:16
--- NOTE | 2018-02-06 03:56 | PN ---
DATE: SUBJECTIVE: The patient was afebrile, but she was still having this rash. The rash was appearing a little less red, but it was still diffuse. There were no new areas of rash. She was not having any fever. She denied any shortness of breath. She did have some ear problems, and she has been using Cortisporin, so we ordered ofloxacin. PHYSICAL EXAMINATION: VITAL SIGNS: Pulse was 94, blood pressure 97/61, respirations 20. GENERAL: She was awake, alert. NECK: Supple. LUNGS: Clear. HEART: S1, S2 regular. ABDOMEN: Soft. SKIN: She continued to have rash. Diffuse maculopapular rash bilaterally. EXTREMITIES: Had no edema. LABORATORY DATA: Noted. White count 7.4, hemoglobin 13.4, hematocrit 38.4, platelet count of 358. She said she wanted to go home and the MAINTENANCE AIDE later called me. She never told me when I was there. BUN is 12, and creatinine 0.7, and she did have UTI, and we have given her Cipro also. She came out positive for syphilis and so I would think that this rash was related to syphilis. SHE IS ALLERGIC TO PENICILLIN. So, we have placed her on doxycycline 100 b.i.d., along with acidophilus for 25 more days, that will treat her for syphilis that she had. GIANNA was negative, and she seems to be slightly better, but rash was still present. Mario Montana MD
[2018-02-06] MEDS ORDERED: Pantoprazole 40 mg EC Tab PO SCH (10:00)
== END 2018-02-05 18:50 | disposition home or self-care (01) | DRG 423 ==
LOC: C.ER 17:31 → C.9E 20:13 → C.3T 20:45
PROVIDERS: ADMIT Internal Medicine Nephrology; ATTEND Internal Medicine Nephrology
DX: A53.9 Syphilis, unspecified (principal); N39.0 Urinary tract infection, site not specified; K12.1 Other forms of stomatitis; J45.909 Unspecified asthma, uncomplicated; F17.210 Nicotine dependence, cigarettes, uncomplicated; Z59.0 Homelessness; Z88.0 Allergy status to penicillin; Z88.8 Allergy status to other drugs, medicaments and biological substances